=== PATIENT | male | born 1975 | race Caucasian/White ===

== ENCOUNTER 2019-05-27 | Emergency (ER) | payer OTHER, BC ==
[2019-05-27] MEDS ORDERED: LISINOPRIL10 M1 PO (14:44)
[2019-05-27] MEDS ORDERED: ESCITALOPRAM OX10 MG PO (14:45)
[2019-05-27] MEDS ORDERED: ALPRAZOLAM0.25 MG PO (14:45)
== END 2019-05-27 15:00 | disposition home or self-care (01) | DRG 204 ==
PROC: 2W3JX1Z Immobilization of Right Finger using Splint (ICD-10-PCS; principal; 2019-05-27)
DX: R07.81 Pleurodynia (principal); S63.614A Unspecified sprain of right ring finger, initial encounter; S80.02XA Contusion of left knee, initial encounter; I10 Essential (primary) hypertension; Y04.8XXA Assault by other bodily force, initial encounter; Y93.89 Activity, other specified; Y92.149 Unspecified place in prison as the place of occurrence of the external cause; Y99.0 Civilian activity done for income or pay